=== PATIENT | female | born 1985 | race Caucasian/White ===

== ENCOUNTER 2023-06-06 11:16 | Emergency (ER) | payer BC, SELFPAY ==
--- NOTE | ~2023-06-06 | XR_ITS ---
EXAMINATION: XR foot LT min 3V DATE: 06/06/2023 11:40 INDICATION: Left foot pain TECHNIQUE: Dorsoplantar, lateral, and 2 oblique views of the left foot were obtained. COMPARISON: None. FINDINGS: No fracture, dislocation, or subluxation. The bones, soft tissues, and joint spaces are nor mal. IMPRESSION: 1. No acute osseous abnormality. Reviewed, dictated and finalized at location F. OPERATIONS MANAGER
[2023-06-06 11:27] VITALS: BP 135/76; PULSE 86; RESP 16; TEMP 37.1; O2SAT 100
--- NOTE | 2023-06-06 11:47 | ED.LOWEXIN ---
HPI - Extremity Injury (Lower) General Chief Complaint: Extremity Injury, Lower Stated Complaint: Foot Injury Time Seen by Provider: 06/06/23 11:48 Source: patient, RN notes reviewed and old records reviewed Mode of arrival: ambulatory Limitations: no limitations History of Present Illness HPI Narrative: 38-year-old female presents to [facility] with complaint left foot pain this started night after patient stepped wrong. Patient said was wearing high wedge and twisted foot out patient denies ankle pain. MD complaint: foot injury Onset (ago): day(s) (2) Related Data Home Medications Medication Instructions Recorded Confirmed Adderall 06/06/23 Nexplanon 06/06/23 Allergies Allergy/AdvReac Type Severity Reaction Status Date / Time Sulfa (Sulfonamide Allergy Rash Verified 06/06/23 11:52 Antibiotics) Review of Systems Constitutional: Constitutional: Reports no additional constitutional complaints Eyes: Eyes: Reports no additional eye complaints ENT: Reports system reviewed and no additional complaints, except as documented Cardiovascular: Cardiovascular: Reports no additional cardiovascular complaints Respiratory: Respiratory: Reports no additional respiratory complaints Musculoskeletal: Musculoskeletal: Reports as per HPI Comments: Left foot pain Neurologic: Reports system reviewed and no additional complaints, except as documented PMFSH Comments At the time of my signature, I reviewed and agree with the nursing past medical, surgical, social, and family history. There is no relevant family history pertinent to the patient complaint. Exam Const: General: cooperative, healthy appearing, no acute distress and well nourished Nutritional Appearance: well nourished Orientation/consciousness: patient oriented x3 Limitations: no limitations HENMT: Head: normal to inspection and normocephalic Ears: external ears normal, TM's normal bilaterally, mastoids normal and Abnormal EAC present Face/Nose/Sinus: normal facial exam Face and sinus: normal facial exam Mouth: Yes Normal oral and palatal mucosa present, Yes oropharynx normal and Yes moist mucous membranes Throat: posterior oropharynx normal, tonsils normal, uvula midline and no uvular edema Eyes: General: appearance normal, both eyes and all related structures Sclera: sclerae normal Pupils: Equal, round and reactive pupils present Resp: Effort & Inspection: normal respiratory effort, able to speak in complete sentences, no audible wheezes, no cough, no respiratory distress and no retractions Auscultation: clear to auscultation bilaterally, no crackles, no rales, no rhonchi and no wheezes Cardio: Rate: regular rate Rhythm: regular rhythm Skin: General skin exam: normal color and no rashes or lesions noted Neuro: General: patient oriented x3 Cranial nerves: Yes Equal, round and reactive pupils present Extrem: Left lower extremity: full ROM, normal capillary refill and foot Details: normal capillary refill, tenderness, toes with normal ROM and abnormal ROM of toe; no unusual warmth, edema noted, no edema, no lacerations, no ecchymosis and no crepitus; no edema Psych: Appearance: grossly normal Course Course Emergency Course: Some parts of this dictation were generated by voice recognition software and may contain typographical and/or grammatical inaccuracies. Level of Care: Express Care Visit Vital Signs Vital signs: Vital Signs Temperature 98.7 F 06/06/23 11:27 Pulse Rate 86 06/06/23 11:27 Respiratory Rate 16 06/06/23 11:27 Blood Pressure 135/76 06/06/23 11:27 Pulse Oximetry 100 06/06/23 11:27 Oxygen Delivery Room Air 06/06/23 11:27 Temperature 98.7 F 06/06/23 11:27 Pulse Rate 86 06/06/23 11:27 Respiratory Rate 16 06/06/23 11:27 Blood Pressure 135/76 06/06/23 11:27 Pulse Oximetry 100 06/06/23 11:27 Oxygen Delivery Room Air 06/06/23 11:27 Reviewed MDM - Nancyi
== END 2023-06-06 12:16 | disposition home or self-care (01) ==
PROVIDERS: Emergency Provider Registered Nurse
DX: S96.912A Strain of unspecified muscle and tendon at ankle and foot level, left foot, initial encounter (principal); X50.0XXA Overexertion from strenuous movement or load, initial encounter
CPT/HCPCS: 73630; 99213; G0463